=== PATIENT | female | born 1970 | race Caucasian/White ===

== ENCOUNTER → 2019-10-31 | Day surgery (SDC) | payer MEDICAID, SELFPAY ==
[~2019-10-31] MED LIST: MIDAZOLAM HCL 2 MG/2 ML VIAL (VERSED) ONE; fentaNYL CITRATE/PF 100 MCG/2 ML AMP ONE
[2019-10-31 15:58] VITALS: BP_SYST 121
== END | disposition still patient (30) ==
LOC: SMU 08:30 → SDS 08:30
PROVIDERS: ATTEND Internal Medicine
DX: R19.5 Other fecal abnormalities (principal); K64.8 Other hemorrhoids; K57.30 Diverticulosis of large intestine without perforation or abscess without bleeding; Z11.59 Encounter for screening for other viral diseases; I10 Essential (primary) hypertension; Z98.84 Bariatric surgery status
CPT/HCPCS: 45378; 99152; G0378; J3010; J3465; J7030; U0003